=== PATIENT | male | born 2000 | race Caucasian/White ===

== ENCOUNTER 2024-09-15 12:08 | Inpatient (IN) | payer BC ==
[~2024-09-15] VITALS: Ht 177.8 cm; Wt 75.3 kg
[2024-09-15] MEDS: IV NS 0.9% 1,000 ML BAG IV ONE (12:30)
[2024-09-15 12:34] LABS: BASOPHILS % (AUTO) 0.5 % (0.0-2.0); EOSINOPHILS # (AUTO) 0.1 K/uL (0.0-0.7); HEMATOCRIT 50 % (39-51); HEMOGLOBIN 16.7 g/dL (13.5-17.5); LYMPHOCYTES % (AUTO) 30.9 % (20.0-44.0); MEAN CORPUSCULAR HEMOGLOBIN 32 PG (26.0-33.0); MEAN CORPUSCULAR HGB CONC 34 g/dl (31.0-36.0); MEAN CORPUSCULAR VOLUME 95 fL (80-96); MONOCYTES # (AUTO) 0.6 K/uL (0.1-1.30); MONOCYTES % (AUTO) 9.4 % (2.0-12.0); NEUTROPHILS # (AUTO) 3.7 K/uL (1.8-8.9); NEUTROPHILS % (AUTO) 58.2 % (43.0-81.0); PLATELET COUNT (AUTO) 253 K/uL (150-450); RED BLOOD CELL COUNT(AUTO) 5.23 MIL/uL (4.5-6.0); RED CELL DISTRIBUTION WIDTH 14.5 % (11.5-15.0); WHITE BLOOD COUNT (AUTO) 6.4 K/uL (4.3-11.0)
[2024-09-15 12:41] LABS: CALCIUM, SERUM 8.2 mg/dL (8.5-10.1); CARBON DIOXIDE 29 mmol/L (21-32); CHLORIDE 105 mmol/L (98-107); CREATININE 0.8 mg/dL (0.6-1.3); GLUCOSE 96 mg/dL (74-106); POTASSIUM 3.4 mmol/L (3.5-5.1); SODIUM SERUM 142 mmol/L (136-145); UREA NITROGEN, BLOOD 13 mg/dL (7-18)
[2024-09-15 12:43] LABS: ALCOHOL, BLOOD < 10 mg/dL (0-10)
[2024-09-15 12:50] LABS: C-REACTIVE PROTEIN < 0.20 mg/dL (0.0-0.30); CREATINE KINASE, TOTAL 103 U/L (39-308)
[2024-09-15] MEDS ORDERED: QUET100T PO (14:33)
[2024-09-15] MEDS ORDERED: METH750T3 PO (14:33)
[2024-09-15] MEDS ORDERED: GABA600T PO (14:33)
[2024-09-15] MEDS ORDERED: ONDANSETRON HCL/PF 4 MG/2 ML VIAL IVP PRN (15:30)
[2024-09-15] MEDS ORDERED: ZOLPIDEM TARTRATE 5 MG TABLET PO PRN (15:30)
[2024-09-15] MEDS ORDERED: Z GUARD REMEDY 4 OZ OINT TP PRN (15:30)
[2024-09-15 16:05] VITALS: BP 121/65; TEMP 97.3; O2SAT 100
[2024-09-15] MEDS: IV NS 0.9% 1,000 ML IV PRN (17:06)
[2024-09-15 20:00] VITALS: BP 116/75; TEMP 98.2; O2SAT 99
[2024-09-15] MEDS: ACETAMINOPHEN 325 MG TABLET PO PRN (22:20)
[2024-09-16 04:43] VITALS: BP 106/71; TEMP 97.9; O2SAT 98
[2024-09-16 07:04] LABS: BASOPHILS % (AUTO) 0.2 % (0.0-2.0); EOSINOPHILS # (AUTO) 0.1 K/uL (0.0-0.7); EOSINOPHILS % (AUTO) 1.4 % (0.0-6.0); HEMATOCRIT 47 % (39-51); HEMOGLOBIN 15.8 g/dL (13.5-17.5); LYMPHOCYTES % (AUTO) 30.2 % (20.0-44.0); MEAN CORPUSCULAR HEMOGLOBIN 32 PG (26.0-33.0); MEAN CORPUSCULAR HGB CONC 33 g/dl (31.0-36.0); MEAN CORPUSCULAR VOLUME 95 fL (80-96); MONOCYTES # (AUTO) 0.6 K/uL (0.1-1.30); MONOCYTES % (AUTO) 8.4 % (2.0-12.0); NEUTROPHILS % (AUTO) 59.8 % (43.0-81.0); PLATELET COUNT (AUTO) 265 K/uL (150-450); RED BLOOD CELL COUNT(AUTO) 4.98 MIL/uL (4.5-6.0); RED CELL DISTRIBUTION WIDTH 14.6 % (11.5-15.0); WHITE BLOOD COUNT (AUTO) 6.7 K/uL (4.3-11.0)
[2024-09-16 07:21] LABS: CALCIUM, SERUM 8.8 mg/dL (8.5-10.1); CREATININE 0.7 mg/dL (0.6-1.3); MAGNESIUM 2.1 mg/dL (1.8-2.4); PHOSPHORUS 4.3 mg/dL (2.5-4.9); POTASSIUM 4.6 mmol/L (3.5-5.1)
[2024-09-16 08:00] VITALS: BP 119/78; TEMP 98.4; O2SAT 98
[2024-09-16 11:58] LABS: THYROID STIMULATING HORMONE 0.69 uIU/mL (0.358-3.74)
[2024-09-16 15:16] LABS: AMPHETAMINE, URINE NEGATIVE (NEGATIVE); BARBITURATE, URINE NEGATIVE (NEGATIVE); BENZODIAZEPINE, URINE NEGATIVE (NEGATIVE); CANNABINOID, URINE NEGATIVE (NEGATIVE); COCCAINE, URINE NEGATIVE (NEGATIVE); OPIATE, URINE NEGATIVE (NEGATIVE); PHENCYCLIDINE SCREEN,URINE NEGATIVE (NEGATIVE)
[2024-09-16] MEDS: CYANOCOBALAMIN 500 MCG TABLET PO SCH (15:48)
[2024-09-16 16:00] VITALS: BP 122/79; TEMP 97.7; O2SAT 98
[2024-09-16 20:00] VITALS: BP 138/89; TEMP 97.9; O2SAT 96
[2024-09-17 08:00] VITALS: BP 128/78; TEMP 97.7; O2SAT 99
== END 2024-09-17 12:40 | disposition home or self-care (01) | DRG 556 ==
LOC: ER 12:10 → MEDSG1 14:41
PROVIDERS: ADMIT Internal Medicine; ATTEND Internal Medicine
DX: M79.661 Pain in right lower leg (principal); M79.662 Pain in left lower leg; R53.1 Weakness; E53.8 Deficiency of other specified B group vitamins; R26.9 Unspecified abnormalities of gait and mobility; F10.10 Alcohol abuse, uncomplicated; F15.10 Other stimulant abuse, uncomplicated
CPT/HCPCS: 36415; 70450-TC; 80048-TC; 82140-TC; 82550-TC; 82607-TC; 83735-TC; 83921; 84100-TC; 84443-TC; 85025-TC; 85652-TC; 86140-TC; 87081-TC; 97112-TC; 97116-TC; A4223; G0378; G0480; J7030; J7050